=== PATIENT | female | born 2000 | race Caucasian/White ===

== ENCOUNTER 2021-10-30 23:46 | Outpatient (CLI) | payer OTHER, SELFPAY ==
[2021-10-30 23:56] VITALS: BP 121/74; PULSE 78; RESP 18; TEMP 36.7; O2SAT 99; BMI 26.6
[2021-10-31 00:10] VITALS: PULSE 79; O2SAT 99
[2021-10-31 00:15] VITALS: PULSE 82; O2SAT 98
[2021-10-31 00:20] VITALS: PULSE 91; O2SAT 98
[2021-10-31 00:25] VITALS: PULSE 86; O2SAT 98
== END 2021-10-31 00:38 | disposition home or self-care (01) ==
LOC: ED 10-31 00:10 → OB 10-31 00:16 → OB OUT 11-01 15:33 → OB 11-01 15:34
PROVIDERS: Visit Provider Advanced Practice Midwife
DX: O36.8120 Decreased fetal movements, second trimester, not applicable or unspecified (principal); Z3A.24 24 weeks gestation of pregnancy
CPT/HCPCS: 99213

== ENCOUNTER 2023-06-26 00:53 | Outpatient (CLI) | payer OTHER, SELFPAY ==
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
== END 2023-06-26 00:54 | disposition home or self-care (01) ==
LOC: AMB 07-10 01:27
PROVIDERS: Visit Provider Family Medicine
DX: S19.9XXA Unspecified injury of neck, initial encounter (principal); V49.40XA Driver injured in collision with unspecified motor vehicles in traffic accident, initial encounter; Y92.411 Interstate highway as the place of occurrence of the external cause
CPT/HCPCS: A0998